=== PATIENT | female | born 2000 | race Caucasian/White ===

== ENCOUNTER 2018-10-28 07:37 | Emergency (ER) | payer BC ==
[~2018-10-28] VITALS: Ht 160 cm; Wt 55.7 kg
[2018-10-28 07:40] VITALS: Ht 160 cm; Wt 55.7 kg
[2018-10-28 11:45] VITALS: BP 106/60; PULSE 62; RESP 18
== END 2018-10-28 11:47 | disposition home or self-care (01) ==
LOC: FTE 07:37
DX: O20.0 Threatened abortion (principal); Z3A.00 Weeks of gestation of pregnancy not specified
CPT/HCPCS: 36415; 76801; 76817; 81001; 84702; 85025; 86900; 86901; 88305; Z7502